=== PATIENT | female | born 1995 | race Caucasian/White ===

== ENCOUNTER 2017-03-04 07:51 | Emergency (ER) | payer OTHER ==
[2017-03-04 08:00] VITALS: BP 121/75; PULSE 85; TEMP 98.3; BMI 38.7
[2017-03-04] MEDS ORDERED: KETOROLAC TROMETHAMINE 60 MG/2 ML VIAL IM ONE (08:32)
[2017-03-04] MEDS ORDERED: KETOROLAC TROMETHAMINE 60 MG/2 ML VIAL ONE (09:19)
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
== END 2017-03-04 10:18 | disposition home or self-care (01) ==
LOC: JERFT 07:51
PROC: 3E0233Z Introduction of Anti-inflammatory into Muscle, Percutaneous Approach (ICD-10-PCS; principal; 2017-03-04)
DX: M54.5 Low back pain (principal); V43.52XA Car driver injured in collision with other type car in traffic accident, initial encounter; Y93.89 Activity, other specified; Y92.410 Unspecified street and highway as the place of occurrence of the external cause; E66.01 Morbid (severe) obesity due to excess calories; Z68.38 Body mass index [BMI] 38.0-38.9, adult; M41.9 Scoliosis, unspecified; Z72.0 Tobacco use
CPT/HCPCS: 72100-TC; 84703; 96372; 99281-25

== ENCOUNTER 2018-08-08 22:37 | Emergency (ER) | payer OTHER ==
[2018-08-08 22:41] VITALS: BP 115/53; PULSE 82; TEMP 98.2; BMI 32.3
[2018-08-08] MEDS ORDERED: KETOROLAC TROMETHAMINE 60 MG/2 ML VIAL IM ONE (23:08)
--- NOTE | 2018-08-08 23:08 | PDOC ---
History of Present Illness - General History Source: Patient Exam Limitations: No Limitations - History of Present Illness Initial Comments: 08/08/18 23:30 The patient is a 23 year old female with significant past medical history of scoliosis, who presents today complaining of progressively worsening lower back pain over the past 3 days. 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 Patient states that the lower back pain radiates to the bilateral lower extremities. Patient reports the pain is aggravated while standing and laying flat. Patient notes taking tylenol extra strength to alleviate the pain. Patient had a temporary episode of numbness down both legs yesterday morning and notes that it subsided soon after. Patient last had a similar flare up 3 years ago and she was given a shot of Toradol which provided significant relief. Patient notes seeing a back surgeon who recommended physical therapy, however patient wasnt compliant. Denies urinary changes Denies changes in bowel movements Denies numbness and tingling in groin Allergies: NKA <Katrina Newman - Last Filed: 08/08/18 23:30> <Angela Fontenot - Last Filed: 08/09/18 00:09> - General Chief Complaint: Back Pain Stated Complaint: BACK PAIN Time Seen by Provider: 08/08/18 22:38 Past History <Katrina Newman - Last Filed: 08/08/18 23:30> - Past Medical History Asthma: No Cancer: No Cardiac Disorders: No COPD: No Diabetes: No HTN: No Seizures: No Thyroid Disease: No - Surgical History Abdominal Surgery: Yes (bariatric surgery) - Reproductive History Cervical CA: No Dysfunctional Uterine Bleeding: No Ectopic : No Endometrial CA: No Polycystic Ovaries: No Tubal Ligation: No - Immunization History Immunization Up to Date: Yes - Suicide/Smoking/Psychosocial Hx Smoking History: Unknown if ever smoked Have you smoked in the past 12 months: No Number of Cigarettes Smoked Daily: 0 Information on smoking cessation initiated: No Hx Alcohol Use: No Drug/Substance Use Hx: No Substance Use Type: None Hx Substance Use Treatment: No <Angela Fontenot - Last Filed: 08/09/18 00:09> - Past Medical History Allergies/Adverse Reactions: Allergies Allergy/AdvReac Type Severity Reaction Status Date / Time No Known Allergies Allergy Verified 03/04/17 07:57 Home Medications: Ambulatory Orders Diclofenac Sodium [Voltaren -] 75 mg PO BID PRN #20 tablet. 08/08/18 Review of Systems - Review of Systems Able to Perform ROS?: Yes Comments:: 08/08/18 23:30 GENERAL/CONSTITUTIONAL: No fever or chills. No weakness. HEAD, EYES, EARS, NOSE AND THROAT: No change in vision. No ear pain or discharge. No sore throat. CARDIOVASCULAR: No chest pain or shortness of breath. RESPIRATORY: No cough, wheezing, or hemoptysis. GASTROINTESTINAL: No nausea, vomiting, diarrhea or constipation. GENITOURINARY: No dysuria, frequency, or change in urination. MUSCULOSKELETAL: + lower back pain radiating to bilateral lower extremities. SKIN: No rash NEUROLOGIC: No headache, vertigo, loss of consciousness, or change in strength/ sensation. ENDOCRINE: No increased thirst. No abnormal weight change. HEMATOLOGIC/LYMPHATIC: No anemia, easy bleeding, or history of blood clots. ALLERGIC/IMMUNOLOGIC: No hives or skin allergy. <Katrina Newman - Last Filed: 08/08/18 23:30> *Physical Exam - Vital Signs Last Vital Signs Temp Pulse Resp BP Pulse Ox 98.2 F 82 14 115/53 L 100 08/08/18 22:38 08/08/18 22:38 08/08/18 22:38 08/08/18 22:38 08/08/18 22:38 - Physical Exam Comments: 08/08/18 23:31 GENERAL: Awake, alert, and fully oriented, in no acute distress HEAD: No signs of trauma EYES: PERRLA, EOMI, sclera anicteric, conjunctiva clear ENT: Auricles normal inspection, hearing grossly normal, nares patent, oropharynx clear without exudates. Moist mucosa NECK: Normal ROM, supple, no lymphadenopathy, JVD, or masses LUNGS: Breath sounds equal, clear to auscultation bilaterally. No wheezes, and no crackles HEART: Regular rate and rhythm, normal S1 and S2, no murmurs, rubs or gallops ABDOMEN: Soft, nontender, normoactive bowel sounds. No guarding, no rebound. No masses BACK: + mild bilateral paraspinal tenderness L1-L5 with mild palpable muscle spasm bilaterally. + straight leg raise bilaterally at 10 degrees. EXTREMITIES: Normal range of motion, no edema. No clubbing or cyanosis. No cords, erythema, or tenderness NEUROLOGICAL: Cranial nerves II through XII grossly intact. Normal speech, normal gait SKIN: Warm, Dry, normal turgor, no rashes or lesions noted.: <Katrina Newman - Last Filed: 08/08/18 23:30> - Vital Signs Last Vital Signs Temp Pulse Resp BP Pulse Ox 98.2 F 82 14 115/53 L 100 08/08/18 22:38 08/08/18 22:38 08/08/18 22:38 08/08/18 22:38 08/08/18 22:38 <Angela Fontenot - Last Filed: 08/09/18 00:09> Moderate Sedation - Procedure Monitoring Vital Signs: Procedure Monitoring Vital Signs Temperature 98.2 F 08/08/18 22:38 Pulse Rate 82 08/08/18 22:38 Respiratory Rate 14 08/08/18 22:38 Blood Pressure 115/53 L 08/08/18 22:38 O2 Sat by Pulse Oximetry (%) 100 08/08/18 22:38 <Katrina Newman - Last Filed: 08/08/18 23:30> - Procedure Monitoring Vital Signs: Procedure Monitoring Vital Signs Temperature 98.2 F 08/08/18 22:38 Pulse Rate 82 08/08/18 22:38 Respiratory Rate 14 08/08/18 22:38 Blood Pressure 115/53 L 08/08/18 22:38 O2 Sat by Pulse Oximetry (%) 100 08/08/18 22:38 <Angela Fontenot - Last Filed: 08/09/18 00:09> ED Treatment Course - Medications Given in the ED: ED Medications Discontinued Medications Generic Name Dose Route Start Last Admin Trade Name Freq PRN Reason Stop Dose Admin Ketorolac Tromethamine 60 mg 08/08/18 23:08 08/08/18 23:09 Toradol Injection - IM 08/08/18 23:09 60 mg ONCE ONE Administration <Katrina Newman - Last Filed: 08/08/18 23:30> Progress Note - Progress Note Progress Note: Documentation has been prepared under my direction and personally reviewed by me in its entirety. I attest that this documented accurately reflects all work, treatment, procedures and medical decision making performed by me. <Angela Fontenot - Last Filed: 08/09/18 00:09> Medical Decision Making - Medical Decision Making 08/09/18 00:05 As noted above, this 23-year-old woman with a history of scoliosis(diagnosed at age 13) presents with a few day flareup of her lower back pain. Patient states current symptoms are consistent with previous pain from scoliosis flareup although this particular episode this severe. 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 Exam as noted. Patient had marked relief after Toradol 60 mg IM. Prescription for diclofenac 75 mg twice a day as needed for pain center pharmacy. Patient should call her spinal surgeon tomorrow to arrange for follow -up within the next week. <Angela Fontenot - Last Filed: 08/09/18 00:09> *DC/Admit/Observation/Transfer - Attestations Scribe Attestion: 08/08/18 23:32 Documentation prepared by SIDRA Will, acting as emergency medical technician/driver for Angela Fontenot MD/. <Katrina Newman - Last Filed: 08/08/18 23:30> <Angela Fontenot - Last Filed: 08/09/18 00:09> Diagnosis at time of Disposition: Acute low back pain Scoliosis Qualifiers: Scoliosis type: idiopathic Idiopathic scoliosis type: adolescent Spinal region : lumbar Qualified Code(s): M41.126 - Adolescent idiopathic scoliosis, lumbar region - Discharge Dispostion Condition at time of disposition: Stable - Prescriptions Prescriptions: Diclofenac Sodium [Voltaren -] 75 mg PO BID PRN #20 tablet.dr CONTRERAS Reason: Back Pain - Patient Instructions Printed Discharge Instructions: Scoliosis-Adult Additional Instructions: Diclofenac 75 mg twice a day as needed; take as needed followup with your spinal surgeon within one week(call tomorrow to make appointment) return to ER if you have severe, persistent pain or numbness
[2018-08-08] MEDS ORDERED: KETOROLAC TROMETHAMINE 60 MG/2 ML VIAL ONE (23:11)
== END 2018-08-09 00:12 | disposition home or self-care (01) ==
LOC: FER 22:37
PROC: 3E0233Z Introduction of Anti-inflammatory into Muscle, Percutaneous Approach (ICD-10-PCS; principal; 2018-08-08)
DX: M41.126 Adolescent idiopathic scoliosis, lumbar region (principal); G89.29 Other chronic pain; M54.5 Low back pain
CPT/HCPCS: 99283-25

== ENCOUNTER 2020-01-27 21:22 | Emergency (ER) | payer SELFPAY ==
[2020-01-27 21:41] VITALS: BP 133/78; PULSE 68; TEMP 98.8; BMI 45.1
[2020-01-27] MEDS ORDERED: AMOX TR/POT CLAV 875MG/125MG TABLETS (FP) PO ONE (23:07)
--- NOTE | 2020-01-27 23:07 | PDOC ---
History of Present Illness - General Chief Complaint: Oral Ulcers Stated Complaint: MOUTH INFECTION Time Seen by Provider: 01/27/20 21:39 - History of Present Illness Initial Comments: This otherwise healthy 25-year-old woman presents with several day history of worsening gum inflammation, ulceration and pain. Patient denies previous history of gingivitis/periodontitis. States that she has a dentist who she has not seen in about a year. Over the last few days, the pain and swelling has been quite severe, with the patient only able to eat a soft diet. She states that she has pain even with speaking. She has been taking Tylenol for pain with little relief. No history of fever/chills or headache. No known allergies No daily medications Non-smoker; denies daily alcohol/other recreational drug use Past History - Medical History Allergies/Adverse Reactions: Allergies Allergy/AdvReac Type Severity Reaction Status Date / Time No Known Allergies Allergy Verified 03/04/17 07:57 Home Medications: Ambulatory Orders Diclofenac Sodium [Voltaren -] 75 mg PO BID PRN #20 tablet. 08/08/18 Amox-Tr/K Cl [Augmentin - 875Mg Tablet] 1 tab PO BID #14 tablet 01/27/20 Diclofenac Sodium 75 mg PO BID PRN #20 tablet. 01/27/20 Asthma: No Cancer: No Cardiac Disorders: No COPD: No Diabetes: No HTN: No Seizures: No Thyroid Disease: No - Surgical History Abdominal Surgery: Yes (bariatric surgery) - Reproductive History Cervical CA: No Dysfunctional Uterine Bleeding: No Ectopic : No Endometrial CA: No Polycystic Ovaries: No Tubal Ligation: No - Immunization History Immunization Up to Date: Yes - Psycho-Social/Smoking History Smoking History: Never smoked Have you smoked in the past 12 months: No Number of Cigarettes Smoked Daily: 0 Information on smoking cessation initiated: No - Substance Abuse Hx (Audit-C & DAST Scrn) How often the patient has a drink containing alcohol: 2-4 times / month Number of drinks the patient has on a typical day: 1 or 2 How often the patient has six or more drinks on one occasion: Monthly Score: In Men: 4 or > Positive; In Women: 3 or > Positive: 4 Screen Result (Pos requires Nsg. Audit-10AR): Positive In the last yr the pt used illegal drug/Rx for NonMed reason: No Score: Yes response is considered Positive: 0 Screen Result (Positive result requires Nsg. DAST-10): Negative Review of Systems - Review of Systems Able to Perform ROS?: Yes Comments:: 12 point review of systems is negative except for what is noted in the history of present illness *Physical Exam - Vital Signs Last Vital Signs Temp Pulse Resp BP Pulse Ox 98.8 F 68 20 133/78 100 01/27/20 21:39 01/27/20 21:39 01/27/20 21:39 01/27/20 21:39 01/27/20 21:39 - Physical Exam GENERAL: HEAD: Normal with no signs of trauma. EYES: PERRLA, EOMI, sclera anicteric, conjunctiva clear. ENT: Ears normal, nares patent, oropharynx clear without exudates. Gingival erythema and edema with scattered ulceration below mandibular central incisors and left maxillary premolar tooth NECK: Normal range of motion, supple ; no JVD, tender lymphadenopathy submandibular lymph nodes bilaterally Medical Decision Making - Medical Decision Making As noted above, this otherwise healthy 25-year-old woman presents with few day history of pain, swelling and ulceration of her gums. Exam consistent with ulcerative gingivitis involving both lower and upper gingival surfaces. Patient has a dentist that she has not seen in approximately 1 year but can follow-up with. She should contact her dentist and make arrangements to be seen within 48 hours. Patient will be started on Augmentin 875/125 twice a day with first dose given here in the emergency room. Prescription for diclofenac 75 mg twice a day to be alternated with acetaminophen for pain relief sent to her pharmacy. Patient has worsening pain/swelling or ulceration or if she develops fever/chills/severe headache, she should return to the ER Discharge - Discharge Information Problems reviewed: Yes Clinical Impression/Diagnosis: Gingivitis, acute Condition: Stable Disposition: HOME - Additional Discharge Information Prescriptions: Amox-Tr/K Cl [Augmentin - 875Mg Tablet] 1 tab PO BID #14 tablet Diclofenac Sodium 75 mg PO BID PRN #20 tablet.dr CONTRERAS Reason: Pain - Follow up/Referral - Patient Discharge Instructions Patient Printed Discharge Instructions: Acute Necrotizing Ulcerative Gingivitis Additional Instructions: Augmentin 875/125 twice a day for 1 week; take with a meal Alternate diclofenac 75 mg with Tylenol as needed for pain Call your dentist tomorrow and arrange for follow-up within the next 2 to 3 days Return to ER if you have increase in pain/swelling or you develop fever/chills - Post Discharge Activity
[2020-01-27] MEDS ORDERED: AMOX TR/POT CLAV 875MG/125MG TABLETS (FP) ONE (23:10)
== END 2020-01-27 23:24 | disposition home or self-care (01) ==
LOC: FER 21:22
DX: K05.10 Chronic gingivitis, plaque induced (principal)
CPT/HCPCS: 99283-25

== ENCOUNTER 2021-10-20 14:21 | Emergency (ER) | payer OTHER ==
[2021-10-20 14:36] VITALS: BP 127/80; PULSE 76; TEMP 97.9; BMI 50.8
[2021-10-20] MEDS ORDERED: DIPHTH,PERTUSS(ACELL),TET 0.5 ML DISP.SYRIN IM ONE ×2 (15:04→15:08)
== END 2021-10-20 16:00 | disposition home or self-care (01) ==
LOC: JERFT 14:21
PROC: 0HQGXZZ Repair Left Hand Skin, External Approach (ICD-10-PCS; principal; 2021-10-20)
PROC: 3E0234Z Introduction of Serum, Toxoid and Vaccine into Muscle, Percutaneous Approach (ICD-10-PCS; 2021-10-20)
DX: S61.412A Laceration without foreign body of left hand, initial encounter (principal); W25.XXXA Contact with sharp glass, initial encounter
CPT/HCPCS: 73130-TC-LT-FY; 90715; 99284-25

== ENCOUNTER 2021-11-05 13:15 | Emergency (ER) | payer OTHER ==
[2021-11-05 13:23] VITALS: BP 121/71; PULSE 72; TEMP 97.4; BMI 23.2
== END 2021-11-05 13:56 | disposition home or self-care (01) ==
LOC: JERFT 13:15
DX: S61.217A Laceration without foreign body of left little finger without damage to nail, initial encounter (principal); W25.XXXA Contact with sharp glass, initial encounter; Z48.02 Encounter for removal of sutures
CPT/HCPCS: 99281-25